=== PATIENT | female | born 1960 | race African-American/Black ===

== ENCOUNTER 2019-04-22 23:23 | Inpatient (IN) ==
[2019-04-23 01:40] LABS: Apearance,Urine CLEAR (Clear); Bilirubin,Urine Negative (Negative); Blood, Urine Negative (Negative); Glucose,Urine (UA) 150 mg/dL (Negative); Ketones,Urine 5 mg/dL (Negative); Nitrite,Urine Negative (Negative); Protein,Urine 100 MG/DL; RBC,Urine 1 /HPF (0-4); Squamous Epithelial Cell,Urine Occasional /HPF (0-10); Urine Color Straw (Yellow); Urine Specific Gravity 1.011 (1.001-1.035); Urine Urobilinogen < 2.0 EU/DL (0.2-1.0); WBC,Urine 2 /HPF (0-6)
[2019-04-23 01:53] LABS: Bilirubin,Total 0.8 MG/DL (0.2-1.0); Calcium 9.8 MG/DL (8.5-10.1); Osmolality,Calculated 299.8 MOS/KG (273-304); Total Protein 8.5 G/DL (6.4-8.3)
[2019-04-23 02:17] LABS: Basophils % 0.4 % (0.0-0.8); Eosinophils # 0.1 10*3/uL (0.0-0.87); Eosinophils % 0.8 % (0.00-10.9); Hematocrit 28.7 VOL% (35.7-47.0); Hemoglobin 9.1 GM/DL (12.0-16.0); Immature Granulocytes % 0.5 %; Immature Granulocytes Absolute 0.06 #; Lymphocytes # 1.1 10*3/uL (1.4-4.0); Lymphocytes % 10.1 % (21.3-54.2); Mean Corpuscular HGB Conc 31.7 GM/DL (32-36); Mean Corpuscular Volume 93.8 FL (87-102); Monocytes % 2.5 % (1.7-12.7); Neutrophils % 85.7 % (38.7-73.9); Platelet Count 244 T/CUMM (130-400); Red Blood Count 3.06 MC/CUMM (3.8-5.5); Red Cell Distribution Width 15.9 % (9.3-17.3)
[2019-04-23] MEDS ORDERED: hydrALAZINE 20 MG/1 ML VIAL IV STA ×2 (04:06→05:29)
[2019-04-23] MEDS ORDERED: FUROSEMIDE 40 MG/4 ML VIAL IV STA ×2 (04:06→05:56)
[2019-04-23] MEDS ORDERED: hydrALAZINE 20 MG/1 ML VIAL ONE ×2 (04:11→05:41)
[2019-04-23] MEDS ORDERED: FUROSEMIDE 40 MG/4 ML VIAL ONE ×2 (04:11→06:29)
[2019-04-23] MEDS ORDERED: niCARdipine INJ 25 MG in SODIUM CHLORIDE 0.9% 240 ML IV PRN (05:33)
[2019-04-23] MEDS ORDERED: niCARdipine 25 MG/10 ML VIAL IV ONE ×2 (05:36→07:14)
[2019-04-23] MEDS ORDERED: ONDANSETRON 4 MG/2 ML VIAL IV PRN (06:33)
[2019-04-23] MEDS ORDERED: DOCUSATE SODIUM 100 MG CAPSULE PO PRN (06:33)
[2019-04-23] MEDS ORDERED: ALBUTEROL 2.5 MG/3 ML NEB RESP TX PRN (06:33)
[2019-04-23] MEDS ORDERED: ACETAMINOPHEN 325 MG TABLET PO PRN (06:33)
[2019-04-23] MEDS ORDERED: PNEUMOCOCCAL VACCINE (23 VALENT) 0.5 ML VIAL IM ONE (07:06)
[2019-04-23 07:41] LABS: Thyroid Stimulating Hormone 2.64 uIU/ml (0.358-3.74)
[2019-04-23] MEDS ORDERED: LABETALOL 20 MG/4 ML SYRINGE IV ONE (07:50)
[2019-04-23] MEDS ORDERED: FUROSEMIDE 100 MG/10 ML VIAL IV ONE (08:17)
[2019-04-23] MEDS ORDERED: NITROPRUSSIDE 50 MG/2 ML VIAL ONE ×2 (08:21→08:24)
[2019-04-23] MEDS: NITROPRUSSIDE 100 MG in DEXTROSE 5% 250 ML IV PRN ×2 (08:31→20:38)
[2019-04-23] MEDS: HEPARIN 5,000 UNIT/1 ML VIAL SUBCUT SCH ×2 (08:31→17:45)
[2019-04-23] MEDS ORDERED: CARVEDILOL 12.5 MG TABLET PO SCH (09:00)
[2019-04-23] MEDS ORDERED: EPOETIN ALFA 10,000 UNIT/1 ML VIAL IV PRN (09:16)
[2019-04-23] MEDS: ASPIRIN EC 81 MG TABLET PO SCH (09:58)
[2019-04-23] MEDS: ALLOPURINOL 300 MG TABLET PO SCH (09:58)
[2019-04-23] MEDS: SODIUM BICARBONATE 650 MG TABLET PO SCH ×2 (09:59→21:17)
[2019-04-23] MEDS ORDERED: CETIRIZINE 10 MG TABLET PO PRN (10:01)
[2019-04-23] MEDS: FLUTICASONE 50 MCG NASAL SPRAY 16 GM BOTTLE BOTH NARES SCH (10:07)
[2019-04-23 10:47] LABS: Hepatitis B Core IgM Quant 0.18 Index; Hepatitis B Surface Ag Quant < 0.10 Index; Hepatitis B Surface Ag Result Negative (Negative); Hepatitis C Virus Ab Quant 0.06 Index; Hepatitis C Virus Ab Result Negative (Negative)
[2019-04-23] MEDS ORDERED: LIDOCAINE/PRILOCAINE CREAM 5 GM TUBE TOP PRN (11:26)
[2019-04-23] MEDS ORDERED: MAGNESIUM SULF RIDER 2 GM in PREMIX 1 EACH IV PRN (11:58)
[2019-04-23] MEDS ORDERED: MAGNESIUM SULF RIDER 4 GM in PREMIX 1 EACH IV PRN (11:58)
[2019-04-23] MEDS ORDERED: CARVEDILOL 25 MG TABLET PO SCH (14:40)
[2019-04-23] MEDS ORDERED: FUROSEMIDE 40 MG/4 ML VIAL IV SCH (16:00)
[2019-04-23] MEDS: TERAZOSIN 1 MG CAPSULE PO SCH (21:18)
[2019-04-23] MEDS: CARVEDILOL 25 MG TABLET PO SCH (21:18)
[2019-04-24] MEDS: HEPARIN 5,000 UNIT/1 ML VIAL SUBCUT SCH ×3 (00:06→17:37)
[2019-04-24 04:15] LABS: Basophils % 0.3 % (0.0-0.8); Eosinophils # 0.1 10*3/uL (0.0-0.87); Eosinophils % 0.5 % (0.00-10.9); Hematocrit 23.1 VOL% (35.7-47.0); Hemoglobin 7.3 GM/DL (12.0-16.0); Immature Granulocytes % 0.7 %; Immature Granulocytes Absolute 0.08 #; Lymphocytes # 1.8 10*3/uL (1.4-4.0); Lymphocytes % 15.2 % (21.3-54.2); Mean Corpuscular HGB Conc 31.6 GM/DL (32-36); Mean Corpuscular Volume 94.3 FL (87-102); Mean Platelet Volume 11.8 FL (9.6-12.0); Monocytes % 5.8 % (1.7-12.7); Neutrophils % 77.5 % (38.7-73.9); Platelet Count 207 T/CUMM (130-400); Red Blood Count 2.45 MC/CUMM (3.8-5.5); Red Cell Distribution Width 15.9 % (9.3-17.3); White Blood Count 11.6 T/CUMM (4-12)
[2019-04-24 04:30] LABS: Albumin 3.2 G/DL (3.4-5.0); Calcium 8.3 MG/DL (8.5-10.1); Osmolality,Calculated 290.8 MOS/KG (273-304)
[2019-04-24 04:38] LABS: % Iron Saturation 80.6 % (18-50)
[2019-04-24] MEDS: CARVEDILOL 25 MG TABLET PO SCH ×2 (13:53→17:37)
[2019-04-24] MEDS: cloNIDine 0.1 MG TABLET PO SCH ×3 (13:53→22:45)
[2019-04-24] MEDS: FLUTICASONE 50 MCG NASAL SPRAY 16 GM BOTTLE BOTH NARES SCH (13:53)
[2019-04-24] MEDS: SODIUM BICARBONATE 650 MG TABLET PO SCH ×2 (13:55→22:45)
[2019-04-24] MEDS: ALLOPURINOL 300 MG TABLET PO SCH (14:01)
[2019-04-24] MEDS: ASPIRIN EC 81 MG TABLET PO SCH (14:01)
[2019-04-24] MEDS: CETIRIZINE 10 MG TABLET PO SCH (14:01)
[2019-04-24] MEDS: TERAZOSIN 1 MG CAPSULE PO SCH (22:45)
[2019-04-24] MEDS: ZALEPLON 5 MG CAPSULE PO PRN (22:47)
[2019-04-25] MEDS: HEPARIN 5,000 UNIT/1 ML VIAL SUBCUT SCH ×3 (02:18→16:56)
[2019-04-25 05:35] LABS: Basophils % 0.3 % (0.0-0.8); Eosinophils # 0.3 10*3/uL (0.0-0.87); Eosinophils % 3.4 % (0.00-10.9); Hematocrit 26.2 VOL% (35.7-47.0); Hemoglobin 8.1 GM/DL (12.0-16.0); Immature Granulocytes % 0.6 %; Immature Granulocytes Absolute 0.05 #; Lymphocytes # 2.3 10*3/uL (1.4-4.0); Lymphocytes % 25.2 % (21.3-54.2); Mean Corpuscular HGB Conc 30.9 GM/DL (32-36); Mean Corpuscular Volume 94.9 FL (87-102); Mean Platelet Volume 11.6 FL (9.6-12.0); Monocytes % 7.7 % (1.7-12.7); NRBC # 0.05 10*3/uL; Neutrophils % 62.8 % (38.7-73.9); Platelet Count 199 T/CUMM (130-400); Red Blood Count 2.76 MC/CUMM (3.8-5.5); Red Cell Distribution Width 15.8 % (9.3-17.3); White Blood Count 9.1 T/CUMM (4-12)
[2019-04-25 06:05] LABS: Albumin 3.4 G/DL (3.4-5.0); Calcium 9.1 MG/DL (8.5-10.1); Osmolality,Calculated 283.4 MOS/KG (273-304)
[2019-04-25 06:06] LABS: VLDL CHOLESTEROL 27.6 MG/DL
[2019-04-25] MEDS: CETIRIZINE 10 MG TABLET PO SCH (09:07)
[2019-04-25] MEDS: ALLOPURINOL 300 MG TABLET PO SCH (09:07)
[2019-04-25] MEDS: SODIUM BICARBONATE 650 MG TABLET PO SCH ×2 (09:07→22:05)
[2019-04-25] MEDS: ASPIRIN EC 81 MG TABLET PO SCH (09:07)
[2019-04-25] MEDS: FLUTICASONE 50 MCG NASAL SPRAY 16 GM BOTTLE BOTH NARES SCH (09:09)
[2019-04-25] MEDS: CARVEDILOL 25 MG TABLET PO SCH ×3 (11:00→16:56)
[2019-04-25] MEDS: cloNIDine 0.1 MG TABLET PO SCH ×3 (11:00→22:05)
[2019-04-25] MEDS: TERAZOSIN 1 MG CAPSULE PO SCH (22:05)
[2019-04-25] MEDS: ZALEPLON 5 MG CAPSULE PO PRN (22:05)
[2019-04-26] MEDS: HEPARIN 5,000 UNIT/1 ML VIAL SUBCUT SCH ×2 (01:02→09:28)
[2019-04-26 06:35] LABS: Albumin 3.7 G/DL (3.4-5.0); Calcium 9.6 MG/DL (8.5-10.1); Osmolality,Calculated 278.4 MOS/KG (273-304)
[2019-04-26] MEDS: CETIRIZINE 10 MG TABLET PO SCH (09:27)
[2019-04-26] MEDS: cloNIDine 0.1 MG TABLET PO SCH (09:27)
[2019-04-26] MEDS: ASPIRIN EC 81 MG TABLET PO SCH (09:27)
[2019-04-26] MEDS: CARVEDILOL 25 MG TABLET PO SCH (09:27)
[2019-04-26] MEDS: SODIUM BICARBONATE 650 MG TABLET PO SCH (09:27)
[2019-04-26] MEDS: ALLOPURINOL 300 MG TABLET PO SCH (09:27)
[2019-04-26] MEDS: FLUTICASONE 50 MCG NASAL SPRAY 16 GM BOTTLE BOTH NARES SCH (09:28)
[2019-04-26 13:37] VITALS: BP 157/98
== END 2019-04-26 13:39 | disposition home or self-care (01) | DRG 291 ==
LOC: N.ED 23:23 → SUATTDRO 04-23 05:56 → N.EDINP 04-23 05:56 → N.ICU 04-23 06:15 → N.5E 04-24 18:36
PROVIDERS: ADMIT Internal Medicine; ATTEND Internal Medicine